=== PATIENT | male | born 1960 | race African-American/Black ===

== ENCOUNTER 2016-07-27 07:28 | Emergency (ER) | payer OTHER ==
[~2016-07-27] VITALS: Ht 170.2 cm; Wt 77.1 kg
--- NOTE | 2016-07-27 07:28 | NUR ---
BBRA+PD FROM THE STREETS, RUNNING IN TRAFFIC PER PD. NAD NOTED. RR EVEN AND UNLABORED. VSS. MD AT BEDSIDE FOR EVAL.
[2016-07-27] MEDS ORDERED: HALOPERIDOL LACTATE INJ 5 MG/ML VIAL ONE (07:41)
[2016-07-27] MEDS ORDERED: LORAZEPAM INJ 2 MG/ML VIAL ONE (07:42)
[2016-07-27] MEDS ORDERED: LORAZEPAM INJ 2 MG/ML VIAL IM ONE (08:00)
[2016-07-27] MEDS ORDERED: HALOPERIDOL LACTATE INJ 5 MG/ML VIAL IM ONE (08:00)
[2016-07-27] MEDS ORDERED: OLANZAPINE 10 MG VIAL IM ONE ×2 (08:30→08:32)
[2016-07-27] MEDS ORDERED: WATER FOR INJECTION,STERILE 10 ML ONE (08:33)
[2016-07-27 09:09] LABS: BASOPHILS % (AUTO) 0.2 % (0.0-2.0); EOSINOPHILS % (AUTO) 0.1 % (0.0-6.0); HEMATOCRIT 38 % (39-51); HEMOGLOBIN 12.9 g/dL (13.5-17.5); LYMPHOCYTES # (AUTO) 1.6 /CMM (0.8-4.8); LYMPHOCYTES % (AUTO) 15.4 % (20.0-44.0); MEAN CORPUSCULAR HEMOGLOBIN 31 PG (26.0-33.0); MEAN CORPUSCULAR HGB CONC 34 g/dl (31.0-36.0); MEAN CORPUSCULAR VOLUME 91 fL (80-96); MONOCYTES # (AUTO) 0.4 /CMM (0.1-1.30); MONOCYTES % (AUTO) 4.2 % (2.0-12.0); NEUTROPHILS # (AUTO) 8.3 /CMM (1.8-8.9); NEUTROPHILS % (AUTO) 80.1 % (43.0-81.0); PLATELET COUNT (AUTO) 142 /CMM (150-450); RDW COEFFICIENT OF VARIATION 13.3 (11.5-15.0); RED BLOOD CELL COUNT(AUTO) 4.22 MIL/uL (4.5-6.0); WHITE BLOOD COUNT (AUTO) 10.3 K/uL (4.3-11.0)
[2016-07-27 09:35] LABS: CALCIUM, SERUM 8.8 mg/dL (8.5-10.1); CARBON DIOXIDE 22 mmol/L (21-32); CHLORIDE 99 mmol/L (98-107); CREATININE 1.3 mg/dL (0.6-1.3); GFR 61 mL/min (>60); GLUCOSE 68 mg/dL (74-106); POTASSIUM 3.9 mmol/L (3.5-5.1); SODIUM SERUM 136 mmol/L (136-145); UREA NITROGEN, BLOOD 37 mg/dL (7-18)
[2016-07-27 09:37] LABS: ALANINE AMINOTRANSFERASE 80 U/L (12-78); ALBUMIN 3.7 g/dL (3.4-5.0); ALKALINE PHOSPHATASE 79 U/L (46-116); ASPARTATE AMINOTRANSFERASE 118 U/L (15-37); BILIRUBIN,DIRECT 0.3 mg/dL (0.0-0.2); BILIRUBIN,TOTAL 1.1 mg/dL (0.2-1.0); TOTAL PROTEIN, SERUM 7.6 g/dL (6.4-8.2)
[2016-07-27 09:38] LABS: ACETAMINOPHEN 0 ug/ml (10-30); ALCOHOL, BLOOD < 3 mg/dL (0-0); SALICYLATE 1.9 mg/dL (2.8-20.0)
[2016-07-27 10:02] LABS: APPEARANCE,URINE SL CLOUDY (CLEAR); BILIRUBIN,URINE NEGATIVE (NEGATIVE); BLOOD, URINE TRACE Ery/uL (NEGATIVE); COLOR,URINE YELLOW (YELLOW); KETONES,URINE 1+ (NEGATIVE); LEUKOCYTE ESTERASE ,URINE NEGATIVE (NEGATIVE); NITRITE, URINE NEGATIVE (NEGATIVE); PH,URINE 5.5 (5.0-8.0); PROTEIN,URINE TRACE mg/dl (NEGATIVE); UGLUCOSE NEGATIVE (NEGATIVE)
[2016-07-27 10:06] LABS: ADD URINE CULTURE NO; BACTERIA,URINE None seen /HPF (None Seen); RBC,URINE 0-3 /HPF (0-2); SPERM,URINE Moderate /HPF (None Seen); SQUAMOUS EPITHELIAL CELL,UR Rare /HPF (None Seen); WBC,URINE 0-2 /HPF (0-3)
[2016-07-27 10:16] LABS: CANNABINOID, URINE NEGATIVE (NEGATIVE); PHENCYCLIDINE SCREEN,URINE NEGATIVE (NEGATIVE)
--- NOTE | 2016-07-27 16:21 | NUR ---
CALLED [facility] FOR PSYCH EVAL
[2016-07-27] MEDS ORDERED: LORAZEPAM 1 MG TABLET PO ONE (17:00)
[2016-07-27] MEDS ORDERED: LORAZEPAM 1 MG TABLET ONE (17:36)
[2016-07-27 19:13] VITALS: BP 122/98
--- NOTE | 2016-07-27 19:14 | NUR ---
Patient discharged to home in stable condition. Written and verbal after care instructions given. Patient verbalizes understanding of instruction. pt ambulatory with stable gait. vss. cleared by perlita. no furhter complaints.
== END 2016-07-27 19:13 | disposition home or self-care (01) ==
LOC: ER 07:29 → EDBD 07:29 → ER 19:13
DX: F23 Brief psychotic disorder (principal); F15.10 Other stimulant abuse, uncomplicated
CPT/HCPCS: 36415; 71010; 80048; 80076; 80305; 80329; 81001; 85025; 96372 ×3; 99285; A4606; G0480 ×2; J1630; J2060; J3490; Z7610; 81000-TC; G6039-TC

== ENCOUNTER 2017-03-22 12:34 | Emergency (ER) | payer OTHER ==
[~2017-03-22] VITALS: Ht 167.6 cm; Wt 78.5 kg
[2017-03-22 13:05] LABS: BASOPHILS # (AUTO) 0.1 /CMM (0.0-0.2); BASOPHILS % (AUTO) 2.4 % (0.0-2.0); EOSINOPHILS # (AUTO) 0.2 /CMM (0.0-0.7); EOSINOPHILS % (AUTO) 3.2 % (0.0-6.0); HEMATOCRIT 45 % (39-51); HEMOGLOBIN 14.6 g/dL (13.5-17.5); LYMPHOCYTES # (AUTO) 1.6 /CMM (0.8-4.8); LYMPHOCYTES % (AUTO) 28.1 % (20.0-44.0); MEAN CORPUSCULAR HEMOGLOBIN 30 PG (26.0-33.0); MEAN CORPUSCULAR HGB CONC 33 g/dl (31.0-36.0); MEAN CORPUSCULAR VOLUME 93 fL (80-96); MONOCYTES # (AUTO) 0.4 /CMM (0.1-1.30); MONOCYTES % (AUTO) 6.6 % (2.0-12.0); NEUTROPHILS # (AUTO) 3.3 /CMM (1.8-8.9); NEUTROPHILS % (AUTO) 59.7 % (43.0-81.0); PLATELET COUNT (AUTO) 156 /CMM (150-450); RDW COEFFICIENT OF VARIATION 13.6 (11.5-15.0); RED BLOOD CELL COUNT(AUTO) 4.86 MIL/uL (4.5-6.0); WHITE BLOOD COUNT (AUTO) 5.6 K/uL (4.3-11.0)
[2017-03-22 13:07] LABS: BILIRUBIN,URINE Negative (NEGATIVE); BLOOD, URINE Negative Ery/uL (NEGATIVE); COLOR,URINE Yellow (YELLOW); KETONES,URINE Negative (NEGATIVE); LEUKOCYTE ESTERASE ,URINE Negative (NEGATIVE); NITRITE, URINE Negative (NEGATIVE); PROTEIN,URINE Negative (NEGATIVE); UGLUCOSE Negative (NEGATIVE); UROBILINOGEN,URINE 0.2 EU/dL (0.2)
[2017-03-22 13:08] LABS: APPEARANCE,URINE CLEAR (CLEAR)
[2017-03-22 13:14] LABS: CALCIUM, SERUM 9.2 mg/dL (8.5-10.1); CARBON DIOXIDE 25 mmol/L (21-32); CHLORIDE 103 mmol/L (98-107); CREATININE 1.1 mg/dL (0.6-1.3); GLUCOSE 132 mg/dL (74-106); SODIUM SERUM 138 mmol/L (136-145); UREA NITROGEN, BLOOD 20 mg/dL (7-18)
[2017-03-22 13:18] LABS: ALANINE AMINOTRANSFERASE 57 U/L (12-78); ALBUMIN 3.7 g/dL (3.4-5.0); ALCOHOL, BLOOD < 3 mg/dL (0-0); ALKALINE PHOSPHATASE 80 U/L (46-116); ASPARTATE AMINOTRANSFERASE 37 U/L (15-37); BILIRUBIN,DIRECT 0.1 mg/dL (0.0-0.2); BILIRUBIN,TOTAL 0.3 mg/dL (0.2-1.0); TOTAL PROTEIN, SERUM 7.8 g/dL (6.4-8.2)
[2017-03-22 13:19] LABS: ACETAMINOPHEN < 10 ug/ml (10-30); SALICYLATE 1.3 mg/dL (2.8-20.0)
[2017-03-22 14:05] VITALS: BP 111/79
== END 2017-03-22 14:08 | disposition home or self-care (01) ==
LOC: ER 12:38
DX: Z00.8 Encounter for other general examination (principal); F20.9 Schizophrenia, unspecified; F31.9 Bipolar disorder, unspecified; R45.851 Suicidal ideations; F17.200 Nicotine dependence, unspecified, uncomplicated; J45.909 Unspecified asthma, uncomplicated
CPT/HCPCS: 36415; 80048; 80076; 80305; 80329; 81001; 85025; 99284; 99406; A4606; G0480 ×2; Z7610; 81000-TC

== ENCOUNTER 2017-03-31 19:50 | Emergency (ER) | payer OTHER ==
[~2017-03-31] VITALS: Ht 175.3 cm; Wt 90.7 kg
--- NOTE | 2017-03-31 19:56 | NUR ---
PT BIBRA FROM THE STREETS TO ER BED 15. PER REPORT, EXHIBITING BIZZARE BEHAVIOR. PT IS TACHYCARDIC, TALKING TO SELF. PLACED ON MONITOR. AWAITING MD MELGOZA.
[2017-03-31] MEDS ORDERED: OLANZAPINE 10 MG VIAL IM ONE ×4 (20:00→22:30)
--- NOTE | 2017-03-31 20:00 | NUR ---
AFSANEH DESIGN SUPERVISOR AT BEDSIDE FOR EVAL.
[2017-03-31 20:33] LABS: BASOPHILS # (AUTO) 0.2 /CMM (0.0-0.2); BASOPHILS % (AUTO) 1.5 % (0.0-2.0); EOSINOPHILS # (AUTO) 0.1 /CMM (0.0-0.7); EOSINOPHILS % (AUTO) 0.6 % (0.0-6.0); HEMATOCRIT 44 % (39-51); HEMOGLOBIN 14.4 g/dL (13.5-17.5); LYMPHOCYTES # (AUTO) 1.6 /CMM (0.8-4.8); LYMPHOCYTES % (AUTO) 15.4 % (20.0-44.0); MEAN CORPUSCULAR HEMOGLOBIN 30 PG (26.0-33.0); MEAN CORPUSCULAR HGB CONC 33 g/dl (31.0-36.0); MEAN CORPUSCULAR VOLUME 92 fL (80-96); MONOCYTES # (AUTO) 1.1 /CMM (0.1-1.30); MONOCYTES % (AUTO) 10.5 % (2.0-12.0); NEUTROPHILS # (AUTO) 7.6 /CMM (1.8-8.9); PLATELET COUNT (AUTO) 172 /CMM (150-450); RDW COEFFICIENT OF VARIATION 13.1 (11.5-15.0); RED BLOOD CELL COUNT(AUTO) 4.74 MIL/uL (4.5-6.0); WHITE BLOOD COUNT (AUTO) 10.6 K/uL (4.3-11.0)
[2017-03-31 20:40] LABS: CALCIUM, SERUM 8.6 mg/dL (8.5-10.1); CARBON DIOXIDE 26 mmol/L (21-32); CHLORIDE 102 mmol/L (98-107); CREATININE 1.4 mg/dL (0.6-1.3); GLUCOSE 94 mg/dL (74-106); POTASSIUM 3.6 mmol/L (3.5-5.1); SODIUM SERUM 141 mmol/L (136-145); UREA NITROGEN, BLOOD 43 mg/dL (7-18)
[2017-03-31 20:53] LABS: ALANINE AMINOTRANSFERASE 107 U/L (12-78); ALKALINE PHOSPHATASE 64 U/L (46-116); ASPARTATE AMINOTRANSFERASE 152 U/L (15-37); BILIRUBIN,DIRECT 0.5 mg/dL (0.0-0.2); BILIRUBIN,TOTAL 2.2 mg/dL (0.2-1.0); TOTAL PROTEIN, SERUM 8.1 g/dL (6.4-8.2)
[2017-03-31] MEDS ORDERED: LORAZEPAM INJ 2 MG/ML VIAL ONE (20:53)
[2017-03-31 20:54] LABS: ACETAMINOPHEN < 2 ug/ml (10-30); ALCOHOL, BLOOD < 3 mg/dL (0-0); SALICYLATE < 2.8 mg/dL (2.8-20.0)
--- NOTE | 2017-03-31 20:59 | NUR ---
PT IS STILL AGITATED. TACHYCARDIC. AFSANEH SHEET METAL JOURNEYMAN MADE AWARE. ATIVAN 2MG IM GIVEN TO R DELTOID PER AFSANEH PA VERBAL ORDER.
[2017-03-31] MEDS ORDERED: LORAZEPAM INJ 2 MG/ML VIAL IV ONE (21:00)
[2017-03-31] MEDS ORDERED: IV NS 0.9% 1,000 ML BAG IV ONE (21:30)
[2017-03-31] MEDS ORDERED: diphenhydrAMINE HCL 50 MG/ML VIAL ONE (22:14)
[2017-03-31] MEDS ORDERED: diphenhydrAMINE HCL 50 MG/ML VIAL IM ONE (22:30)
--- NOTE | 2017-03-31 23:37 | NUR ---
REPORT TO CHARGE [employer] FOR CON.
--- NOTE | 2017-04-01 02:02 | NUR ---
pt sleeping in gurney. no signs of distress noted. pt vital signs normal. pt easily arousable. will cont to monitor pt.
--- NOTE | 2017-04-01 07:08 | NUR ---
Patient provided with clothing and food. Patient discharged in stable condition. Written and verbal after care instructions given. Patient verbalizes understanding of instruction. Patient is ambulatory with steady gait. VSS. No further complaints.
[2017-04-01 07:10] VITALS: BP 132/71
== END 2017-04-01 07:11 | disposition home or self-care (01) ==
LOC: ER 19:53
DX: F23 Brief psychotic disorder (principal); F31.9 Bipolar disorder, unspecified; F20.9 Schizophrenia, unspecified; F17.200 Nicotine dependence, unspecified, uncomplicated; F15.10 Other stimulant abuse, uncomplicated
CPT/HCPCS: 36415; 80048; 80076; 80329; 85025; 96360; 96372 ×4; 99284; A4606; G0480 ×2; J1200; J2060; J3490 ×2; J7030; Z7610

== ENCOUNTER 2017-04-14 17:24 | Emergency (ER) | payer OTHER ==
[~2017-04-14] VITALS: Ht 167.6 cm; Wt 73.9 kg
[2017-04-14 17:26] VITALS: BP 120/84
--- NOTE | 2017-04-14 17:26 | NUR ---
PT TO ER BED 10. SENT FROM [facility] FOR MEDICAL CLEARANCE PRIOR TO VOLUNTARY PSYCH ADMISSION. PT IS AGITATED AND REFUSING TO ANSWER QUESTION. VSS. NAD NOTED AWAITING MD MELGOZA.
--- NOTE | 2017-04-14 17:57 | NUR ---
PERRY MEDELLIN AT BEDSIDE FOR EVAL.
--- NOTE | 2017-04-14 18:15 | NUR ---
MARKET MANAGER AT BEDSIDE FOR BLOOD DRAW.
[2017-04-14 18:29] LABS: APPEARANCE,URINE Clear (CLEAR); BILIRUBIN,URINE Negative (NEGATIVE); BLOOD, URINE Negative Ery/uL (NEGATIVE); COLOR,URINE Yellow (YELLOW); KETONES,URINE Negative (NEGATIVE); LEUKOCYTE ESTERASE ,URINE Negative (NEGATIVE); NITRITE, URINE Negative (NEGATIVE); PH,URINE 5.5 (5.0-8.0); PROTEIN,URINE Negative (NEGATIVE); UGLUCOSE Negative (NEGATIVE); UROBILINOGEN,URINE 0.2 EU/dL (0.2)
[2017-04-14 18:31] LABS: BASOPHILS # (AUTO) 0.1 /CMM (0.0-0.2); BASOPHILS % (AUTO) 1.9 % (0.0-2.0); EOSINOPHILS # (AUTO) 0.2 /CMM (0.0-0.7); EOSINOPHILS % (AUTO) 3.7 % (0.0-6.0); HEMATOCRIT 47 % (39-51); HEMOGLOBIN 15.6 g/dL (13.5-17.5); LYMPHOCYTES # (AUTO) 2.4 /CMM (0.8-4.8); LYMPHOCYTES % (AUTO) 43.5 % (20.0-44.0); MEAN CORPUSCULAR HEMOGLOBIN 31 PG (26.0-33.0); MEAN CORPUSCULAR HGB CONC 33 g/dl (31.0-36.0); MEAN CORPUSCULAR VOLUME 92 fL (80-96); MONOCYTES # (AUTO) 0.5 /CMM (0.1-1.30); MONOCYTES % (AUTO) 8.4 % (2.0-12.0); NEUTROPHILS # (AUTO) 2.4 /CMM (1.8-8.9); NEUTROPHILS % (AUTO) 42.5 % (43.0-81.0); PLATELET COUNT (AUTO) 188 /CMM (150-450); RED BLOOD CELL COUNT(AUTO) 5.11 MIL/uL (4.5-6.0); WHITE BLOOD COUNT (AUTO) 5.6 K/uL (4.3-11.0)
[2017-04-14 18:41] LABS: CALCIUM, SERUM 9.1 mg/dL (8.5-10.1); CARBON DIOXIDE 27 mmol/L (21-32); CHLORIDE 104 mmol/L (98-107); CREATININE 1.2 mg/dL (0.6-1.3); GLUCOSE 86 mg/dL (74-106); POTASSIUM 3.8 mmol/L (3.5-5.1); SODIUM SERUM 140 mmol/L (136-145); UREA NITROGEN, BLOOD 17 mg/dL (7-18)
[2017-04-14 18:54] LABS: INR 1.04 (0.87-1.13); PROTHROMBIN TIME 10.8 SECS (9.5-12.7)
[2017-04-14 18:59] LABS: ACETAMINOPHEN < 2 ug/ml (10-30); ALANINE AMINOTRANSFERASE 88 U/L (12-78); ALBUMIN 3.7 g/dL (3.4-5.0); ALCOHOL, BLOOD < 3 mg/dL (0-0); ALKALINE PHOSPHATASE 75 U/L (46-116); ASPARTATE AMINOTRANSFERASE 45 U/L (15-37); BILIRUBIN,DIRECT 0.1 mg/dL (0.0-0.2); BILIRUBIN,TOTAL 0.3 mg/dL (0.2-1.0); SALICYLATE 1.1 mg/dL (2.8-20.0); TOTAL PROTEIN, SERUM 8.1 g/dL (6.4-8.2)
--- NOTE | 2017-04-14 19:10 | NUR ---
Patient discharged to home in stable condition. Written and verbal after care instructions given. Patient verbalizes understanding of instruction.
== END 2017-04-14 19:15 | disposition home or self-care (01) ==
LOC: ER 17:25
DX: R45.851 Suicidal ideations (principal); F17.200 Nicotine dependence, unspecified, uncomplicated; F20.9 Schizophrenia, unspecified; F31.9 Bipolar disorder, unspecified; I10 Essential (primary) hypertension; R79.1 Abnormal coagulation profile
CPT/HCPCS: 36415; 80048; 80076; 80305; 80329; 81001; 85025; 85730; 99284; A4606; G0480 ×2; Z7610; 81000-TC

== ENCOUNTER 2017-04-23 17:41 | Emergency (ER) | payer OTHER ==
[~2017-04-23] VITALS: Ht 167.6 cm; Wt 79.4 kg
--- NOTE | 2017-04-23 19:00 | NUR ---
PT AMBULATORY TO ER BED 14 STATING HE IS SUICIDAL AND WANTS TO BE ADMITTED TO PSYCH WAY. PT HAS NO SPECIFIC PLAN AT THIS TIME. ALSO REQUESTING FOOD. VSS. AWAITING MD MELGOZA.
--- NOTE | 2017-04-23 19:38 | NUR ---
DR SNOW AT BEDSIDE FOR EVAL.
[2017-04-23 19:48] VITALS: BP 115/70
--- NOTE | 2017-04-23 19:51 | NUR ---
CONTROL CHEMIST AT BEDSIDE FOR BLOOD DRAW.
[2017-04-23 20:15] LABS: BASOPHILS % (AUTO) 0.4 % (0.0-2.0); EOSINOPHILS # (AUTO) 0.2 /CMM (0.0-0.7); EOSINOPHILS % (AUTO) 2.9 % (0.0-6.0); HEMATOCRIT 43 % (39-51); HEMOGLOBIN 14.2 g/dL (13.5-17.5); LYMPHOCYTES # (AUTO) 2.3 /CMM (0.8-4.8); LYMPHOCYTES % (AUTO) 40.1 % (20.0-44.0); MEAN CORPUSCULAR HEMOGLOBIN 31 PG (26.0-33.0); MEAN CORPUSCULAR HGB CONC 33 g/dl (31.0-36.0); MEAN CORPUSCULAR VOLUME 92 fL (80-96); MONOCYTES # (AUTO) 0.7 /CMM (0.1-1.30); NEUTROPHILS # (AUTO) 2.6 /CMM (1.8-8.9); NEUTROPHILS % (AUTO) 44.6 % (43.0-81.0); PLATELET COUNT (AUTO) 150 /CMM (150-450); RDW COEFFICIENT OF VARIATION 13.5 (11.5-15.0); RED BLOOD CELL COUNT(AUTO) 4.63 MIL/uL (4.5-6.0); WHITE BLOOD COUNT (AUTO) 5.8 K/uL (4.3-11.0)
[2017-04-23 20:18] LABS: APPEARANCE,URINE CLEAR (CLEAR); BILIRUBIN,URINE NEGATIVE (NEGATIVE); BLOOD, URINE NEGATIVE Ery/uL (NEGATIVE); COLOR,URINE YELLOW (YELLOW); KETONES,URINE NEGATIVE (NEGATIVE); LEUKOCYTE ESTERASE ,URINE NEGATIVE (NEGATIVE); NITRITE, URINE NEGATIVE (NEGATIVE); PROTEIN,URINE TRACE mg/dl (NEGATIVE); UGLUCOSE NEGATIVE (NEGATIVE)
[2017-04-23 20:28] LABS: BACTERIA,URINE None seen /HPF (None Seen); RBC,URINE 0-2 /HPF (0-2); SQUAMOUS EPITHELIAL CELL,UR 0-2 /HPF (None Seen); WBC,URINE 0-2 /HPF (0-3)
[2017-04-23 20:35] LABS: CALCIUM, SERUM 8.5 mg/dL (8.5-10.1); CARBON DIOXIDE 26 mmol/L (21-32); CHLORIDE 106 mmol/L (98-107); CREATININE 0.9 mg/dL (0.6-1.3); GLUCOSE 80 mg/dL (74-106); POTASSIUM 3.6 mmol/L (3.5-5.1); SODIUM SERUM 140 mmol/L (136-145); UREA NITROGEN, BLOOD 17 mg/dL (7-18)
[2017-04-23 20:41] LABS: ALANINE AMINOTRANSFERASE 75 U/L (12-78); ALBUMIN 3.6 g/dL (3.4-5.0); ALCOHOL, BLOOD < 3 mg/dL (0-0); ALKALINE PHOSPHATASE 72 U/L (46-116); ASPARTATE AMINOTRANSFERASE 59 U/L (15-37); BILIRUBIN,DIRECT 0.2 mg/dL (0.0-0.2); TOTAL PROTEIN, SERUM 7.4 g/dL (6.4-8.2)
[2017-04-23 20:43] LABS: ACETAMINOPHEN < 2 ug/ml (10-30); SALICYLATE < 0.2 mg/dL (2.8-20.0)
--- NOTE | 2017-04-23 21:40 | NUR ---
PT AGITATED AND REFUSING TO STAY IN BED. SHOUTING AND CURSING AT STAFF. GRABBED, VIVIEN BARNARD BY THE NECK AND DRAGGED HIM TO THE FLOOR, SECURITY CALLED AND ESCORTED PATIENT OUT OF ED.
== END 2017-04-23 22:32 | disposition home or self-care (01) ==
LOC: ER 17:43
DX: T40.5X2A Poisoning by cocaine, intentional self-harm, initial encounter (principal); F17.200 Nicotine dependence, unspecified, uncomplicated; F31.9 Bipolar disorder, unspecified; I10 Essential (primary) hypertension; F20.9 Schizophrenia, unspecified; Y92.89 Other specified places as the place of occurrence of the external cause
CPT/HCPCS: 36415; 80048-TC; 80076-TC; 80305; 81000-TC; 85025-TC; A4606; G0480; Z7610

== ENCOUNTER 2017-07-10 12:15 | Emergency (ER) | payer OTHER ==
[~2017-07-10] VITALS: Ht 177.8 cm; Wt 76.2 kg
--- NOTE | 2017-07-10 12:20 | NUR ---
BIB [facility] FOR SUICIDAL IDEATION, REQUESTING PSYCHIATRIC ADMISSION. RAN OUT OF PSYCH MEDS X 5 DAYS. SEEN BY MD FOR EVAL. NOTED CALM AND DIRECTABLE. VSS. SAFETY AND COMFORGT MEASURES PROVIDED. SUICIDE PRECAUTIONS IMPLEMENTED. WILL MONITOR.
[2017-07-10] MEDS ORDERED: OLANZAPINE 5 MG TABLET ONE (12:25)
[2017-07-10] MEDS ORDERED: LORAZEPAM 1 MG TABLET ONE (12:25)
[2017-07-10] MEDS ORDERED: LORAZEPAM 1 MG TABLET PO ONE (12:30)
[2017-07-10] MEDS ORDERED: OLANZAPINE 5 MG TABLET PO ONE (12:30)
--- NOTE | 2017-07-10 12:35 | NUR ---
TILE PROFESSIONAL AT FOR BLOOD DRAW.
[2017-07-10 12:44] LABS: BASOPHILS % (AUTO) 0.5 % (0.0-2.0); EOSINOPHILS # (AUTO) 0.1 /CMM (0.0-0.7); EOSINOPHILS % (AUTO) 0.6 % (0.0-6.0); HEMATOCRIT 41 % (39-51); HEMOGLOBIN 13.8 g/dL (13.5-17.5); LYMPHOCYTES # (AUTO) 1.9 /CMM (0.8-4.8); LYMPHOCYTES % (AUTO) 20.6 % (20.0-44.0); MEAN CORPUSCULAR HEMOGLOBIN 31 PG (26.0-33.0); MEAN CORPUSCULAR HGB CONC 34 g/dl (31.0-36.0); MEAN CORPUSCULAR VOLUME 92 fL (80-96); MONOCYTES % (AUTO) 10.7 % (2.0-12.0); NEUTROPHILS # (AUTO) 6.2 /CMM (1.8-8.9); NEUTROPHILS % (AUTO) 67.6 % (43.0-81.0); PLATELET COUNT (AUTO) 186 /CMM (150-450); RDW COEFFICIENT OF VARIATION 13.3 (11.5-15.0); RED BLOOD CELL COUNT(AUTO) 4.45 MIL/uL (4.5-6.0); WHITE BLOOD COUNT (AUTO) 9.2 K/uL (4.3-11.0)
[2017-07-10 12:53] LABS: CALCIUM, SERUM 8.5 mg/dL (8.5-10.1); CARBON DIOXIDE 28 mmol/L (21-32); CHLORIDE 103 mmol/L (98-107); CREATININE 0.9 mg/dL (0.6-1.3); GLUCOSE 109 mg/dL (74-106); POTASSIUM 3.6 mmol/L (3.5-5.1); SODIUM SERUM 138 mmol/L (136-145); UREA NITROGEN, BLOOD 20 mg/dL (7-18)
[2017-07-10 12:59] LABS: ALANINE AMINOTRANSFERASE 119 U/L (12-78); ALBUMIN 3.4 g/dL (3.4-5.0); ALCOHOL, BLOOD < 3 mg/dL (0-0); ALKALINE PHOSPHATASE 61 U/L (46-116); ASPARTATE AMINOTRANSFERASE 103 U/L (15-37); BILIRUBIN,DIRECT 0.4 mg/dL (0.0-0.2); BILIRUBIN,TOTAL 1.2 mg/dL (0.2-1.0); TOTAL PROTEIN, SERUM 7.3 g/dL (6.4-8.2)
[2017-07-10 13:05] LABS: SALICYLATE 1.7 mg/dL (2.8-20.0)
[2017-07-10 13:06] LABS: ACETAMINOPHEN < 2 ug/ml (10-30)
--- NOTE | 2017-07-10 13:13 | NUR ---
CALLED ART RESIDENTIAL APPLIANCE REPAIR TECHNICIAN WAS PAGED.
--- NOTE | 2017-07-10 13:21 | NUR ---
Patient is resting comfortably in bed with eyes closed. Easily aroused. VSS
--- NOTE | 2017-07-10 15:00 | NUR ---
Pt ambulatory with a steady gait.
--- NOTE | 2017-07-10 15:13 | NUR ---
Patient discharged to home in stable condition. Written and verbal after care instructions given. Patient verbalizes understanding of instruction.
[2017-07-10 15:16] VITALS: BP 112/69
== END 2017-07-10 15:17 | disposition home or self-care (01) ==
LOC: ER 12:16
DX: F15.10 Other stimulant abuse, uncomplicated (principal); F29 Unspecified psychosis not due to a substance or known physiological condition; I10 Essential (primary) hypertension; J45.909 Unspecified asthma, uncomplicated; F31.9 Bipolar disorder, unspecified; F20.9 Schizophrenia, unspecified; Z91.14 Patient's other noncompliance with medication regimen; Z91.19 Patient's noncompliance with other medical treatment and regimen; Z86.19 Personal history of other infectious and parasitic diseases; F17.200 Nicotine dependence, unspecified, uncomplicated
CPT/HCPCS: 36415; 80048; 80076; 80329; 85025; 99284; G0480 ×2

== ENCOUNTER 2017-09-11 04:11 | Emergency (ER) | payer OTHER ==
[~2017-09-11] VITALS: Ht 167.6 cm; Wt 78.5 kg
--- NOTE | 2017-09-11 04:23 | NUR ---
BIBRA 97 / [employer] FOR HEARING VOICES. NO PRIMARY COMPLAINTS -HI / +SI. NO ACTIVE. PLAN. PT AOX3 RR EVEN AND UNLABORED. NO SOB NOTED. NO NVD AT THIS TIME. PT PLACED ON MONITOR WAITING FOR MD MELGOZA.
[2017-09-11] MEDS ORDERED: LORAZEPAM 1 MG TABLET PO ONE ×3 (04:30→08:00)
[2017-09-11] MEDS ORDERED: OLANZAPINE 10 MG VIAL IM ONE ×4 (04:30→12:01)
[2017-09-11] MEDS ORDERED: LORAZEPAM 1 MG TABLET ONE ×3 (04:39→07:45)
--- NOTE | 2017-09-11 04:48 | NUR ---
MD AWARE PT REFUSED IM ZYPREXA. RISK AND BENEFITS EXPLAINED TO PT, PT REFUSED.
--- NOTE | 2017-09-11 04:51 | NUR ---
LAB AT BEDSIDE FOR BLOOD DRAW
[2017-09-11] MEDS ORDERED: OLANZAPINE 5 MG/TAB.RAPDIS ONE (05:00)
[2017-09-11] MEDS ORDERED: OLANZAPINE 5 MG TABLET PO ONE (05:00)
[2017-09-11 05:04] LABS: BASOPHILS # (AUTO) 0.1 /CMM (0.0-0.2); BASOPHILS % (AUTO) 0.7 % (0.0-2.0); EOSINOPHILS # (AUTO) 0.1 /CMM (0.0-0.7); EOSINOPHILS % (AUTO) 1.1 % (0.0-6.0); HEMATOCRIT 41 % (39-51); HEMOGLOBIN 13.6 g/dL (13.5-17.5); LYMPHOCYTES # (AUTO) 1.9 /CMM (0.8-4.8); LYMPHOCYTES % (AUTO) 22.4 % (20.0-44.0); MEAN CORPUSCULAR HEMOGLOBIN 31 PG (26.0-33.0); MEAN CORPUSCULAR HGB CONC 33 g/dl (31.0-36.0); MEAN CORPUSCULAR VOLUME 93 fL (80-96); MONOCYTES # (AUTO) 0.6 /CMM (0.1-1.30); MONOCYTES % (AUTO) 7.1 % (2.0-12.0); NEUTROPHILS # (AUTO) 5.8 /CMM (1.8-8.9); NEUTROPHILS % (AUTO) 68.7 % (43.0-81.0); PLATELET COUNT (AUTO) 233 /CMM (150-450); RDW COEFFICIENT OF VARIATION 13.8 (11.5-15.0); RED BLOOD CELL COUNT(AUTO) 4.38 MIL/uL (4.5-6.0); WHITE BLOOD COUNT (AUTO) 8.5 K/uL (4.3-11.0)
--- NOTE | 2017-09-11 05:06 | NUR ---
URINE COLLECTED. CALLED LAB FOR FASHION ILLUSTRATOR.
[2017-09-11 05:09] LABS: CARBON DIOXIDE 26 mmol/L (21-32); CHLORIDE 101 mmol/L (98-107); GLUCOSE 70 mg/dL (74-106); POTASSIUM 3.7 mmol/L (3.5-5.1); SODIUM SERUM 137 mmol/L (136-145); UREA NITROGEN, BLOOD 19 mg/dL (7-18)
[2017-09-11 05:15] LABS: ALANINE AMINOTRANSFERASE 93 U/L (12-78); ALBUMIN 3.5 g/dL (3.4-5.0); ALCOHOL, BLOOD < 3 mg/dL (0-0); ALKALINE PHOSPHATASE 57 U/L (46-116); ASPARTATE AMINOTRANSFERASE 62 U/L (15-37); BILIRUBIN,DIRECT 0.3 mg/dL (0.0-0.2); TOTAL PROTEIN, SERUM 7.7 g/dL (6.4-8.2)
[2017-09-11 05:19] LABS: ACETAMINOPHEN 0 ug/ml (10-30); SALICYLATE 1.6 mg/dL (2.8-20.0)
[2017-09-11 05:22] LABS: THYROID STIMULATING HORMONE 1.117 uIU/mL (0.358-3.74)
[2017-09-11] MEDS ORDERED: HALOPERIDOL 5 MG TABLET ONE (06:16)
[2017-09-11] MEDS ORDERED: HALOPERIDOL 1 MG TABLET PO ONE (06:30)
--- NOTE | 2017-09-11 06:32 | NUR ---
PT MOVED TO ER BED 6. PT AWARE AND WITH ALL PERSONAL BELONGINGS.
--- NOTE | 2017-09-11 07:03 | NUR ---
REPORT GIVEN TO TIFFANY TYSON FOR CON.
--- NOTE | 2017-09-11 07:26 | NUR ---
Patient eloped from facility. ER MD notified.
--- NOTE | 2017-09-11 07:35 | NUR ---
PT CAME BACK TO THE ER. NOTIFIED.
--- NOTE | 2017-09-11 07:50 | NUR ---
PT PROVIDED WITH BREAKFAST TRAY AT BS.
--- NOTE | 2017-09-11 08:15 | NUR ---
REFUSED VS TO BE CHECKED AT THIS TIME.
--- NOTE | 2017-09-11 09:00 | NUR ---
Patient is resting comfortably in bed with eyes closed. Easily aroused. VSS
--- NOTE | 2017-09-11 10:55 | NUR ---
PT NOTED WALKING ON THE HALLWAY NAKED, AGITATED. SAFELY ASSISTED BACK TO BED PER PROTOCOL. MD MADE AWARE.
[2017-09-11] MEDS ORDERED: LORAZEPAM INJ 2 MG/ML VIAL IM ONE ×2 (11:00→12:00)
[2017-09-11] MEDS ORDERED: HALOPERIDOL LACTATE INJ 5 MG/ML VIAL IM ONE (11:00)
[2017-09-11] MEDS ORDERED: LORAZEPAM INJ 2 MG/ML VIAL ONE (11:02)
[2017-09-11] MEDS ORDERED: HALOPERIDOL LACTATE INJ 5 MG/ML VIAL ONE (11:02)
--- NOTE | 2017-09-11 11:05 | NUR ---
PT MEDICATED ORDERED.
--- NOTE | 2017-09-11 12:00 | NUR ---
PT NOTED PEED ALL OVER BED/ROOM. WALKED AND TRIED TO PEE ON THE HALLWAY NAKED.
[2017-09-11] MEDS ORDERED: WATER FOR INJECTION,STERILE 10 ML ONE (12:01)
--- NOTE | 2017-09-11 15:35 | NUR ---
Patient is resting comfortably in bed with eyes closed. Easily aroused. VSS
--- NOTE | 2017-09-11 18:57 | NUR ---
RECEIVED REPORT FROM TIFFANY TYSON FOR CON. PT RESTING AT THIS TIME WITH EYE CLOSED. EASILY AROUSED.
--- NOTE | 2017-09-11 20:03 | NUR ---
[facility]
--- NOTE | 2017-09-11 20:31 | NUR ---
CALLED ALEX FOR [facility] ETA OF [id number] WAS GIVEN. TRIP#[id number]
--- NOTE | 2017-09-11 21:44 | NUR ---
REPORT GIVEN TO EMT FROM [facility]. PT AWARE OF TRANSFER TO [facility]. PT VSS. PT WITH ALL PERSONAL BELONGINGS. PER ALEX TOOK OVER CARE TRANSFERRED PT VIA SALVADOR
[2017-09-11 21:45] VITALS: BP 140/82
== END 2017-09-11 22:22 ==
LOC: ER 04:13
DX: F23 Brief psychotic disorder (principal); I10 Essential (primary) hypertension; J45.909 Unspecified asthma, uncomplicated; F31.9 Bipolar disorder, unspecified; F17.200 Nicotine dependence, unspecified, uncomplicated; Z86.19 Personal history of other infectious and parasitic diseases
CPT/HCPCS: 36415; 80048; 80076; 80305; 80329; 84443; 85025; 96372 ×2; 99285; A4606; G0480 ×2; J1630; J2060; J3490 ×2; Z7610

== ENCOUNTER 2017-11-10 00:55 | Emergency (ER) | payer OTHER ==
[~2017-11-10] VITALS: Ht 172.7 cm; Wt 72.6 kg
--- NOTE | 2017-11-10 01:10 | NUR ---
PT BIB SELF, PT STATES HE WAS AT [facility] AND TOLD TO GET MEDICALLY CLEARED HERE TO GO, PT STATES HE WANTS TO CUT HIMSELF AND DENIES HI. PATIENT IS AAOX3, NAD NOTED. VSS. AMBULATORY WITH STEADY GAIT.
[2017-11-10 01:20] LABS: BASOPHILS % (AUTO) 0.6 % (0.0-2.0); HEMATOCRIT 43 % (39-51); HEMOGLOBIN 14.6 g/dL (13.5-17.5); LYMPHOCYTES # (AUTO) 1.8 /CMM (0.8-4.8); MEAN CORPUSCULAR HGB CONC 34 g/dl (31.0-36.0); MEAN CORPUSCULAR VOLUME 90 fL (80-96); MONOCYTES # (AUTO) 0.6 /CMM (0.1-1.30); MONOCYTES % (AUTO) 13.2 % (2.0-12.0); NEUTROPHILS # (AUTO) 2.1 /CMM (1.8-8.9); NEUTROPHILS % (AUTO) 44.2 % (43.0-81.0); PLATELET COUNT (AUTO) 188 /CMM (150-450); RDW COEFFICIENT OF VARIATION 13.3 (11.5-15.0); RED BLOOD CELL COUNT(AUTO) 4.77 MIL/uL (4.5-6.0); WHITE BLOOD COUNT (AUTO) 4.8 K/uL (4.3-11.0)
[2017-11-10 01:23] LABS: APPEARANCE,URINE CLEAR (CLEAR); BILIRUBIN,URINE NEGATIVE (NEGATIVE); BLOOD, URINE NEGATIVE Ery/uL (NEGATIVE); KETONES,URINE NEGATIVE (NEGATIVE); LEUKOCYTE ESTERASE ,URINE NEGATIVE (NEGATIVE); NITRITE, URINE NEGATIVE (NEGATIVE); PROTEIN,URINE NEGATIVE (NEGATIVE); UGLUCOSE NEGATIVE (NEGATIVE); UROBILINOGEN,URINE 0.2 EU/dL (0.2)
[2017-11-10 01:25] LABS: COLOR,URINE DARK YELLOW (YELLOW)
[2017-11-10 01:31] LABS: CALCIUM, SERUM 9.3 mg/dL (8.5-10.1); CARBON DIOXIDE 25 mmol/L (21-32); CHLORIDE 104 mmol/L (98-107); CREATININE 1.1 mg/dL (0.6-1.3); GLUCOSE 73 mg/dL (74-106); POTASSIUM 3.5 mmol/L (3.5-5.1); SODIUM SERUM 141 mmol/L (136-145); UREA NITROGEN, BLOOD 15 mg/dL (7-18)
[2017-11-10 01:36] LABS: ALANINE AMINOTRANSFERASE 79 U/L (12-78); ALBUMIN 3.8 g/dL (3.4-5.0); ALCOHOL, BLOOD < 3 mg/dL (0-0); ALKALINE PHOSPHATASE 74 U/L (46-116); ASPARTATE AMINOTRANSFERASE 50 U/L (15-37); BILIRUBIN,DIRECT 0.2 mg/dL (0.0-0.2); BILIRUBIN,TOTAL 0.7 mg/dL (0.2-1.0); TOTAL PROTEIN, SERUM 8.3 g/dL (6.4-8.2)
[2017-11-10 01:48] LABS: ACETAMINOPHEN 0 ug/ml (10-30)
--- NOTE | 2017-11-10 02:05 | NUR ---
ALEX HAIR, BUILDING WRECKER, AT BEDSIDE TALKING TO PATIENT.
--- NOTE | 2017-11-10 02:31 | NUR ---
Patient discharged in stable condition. Written and verbal after care instructions given. Patient verbalizes understanding of instruction. VSS. NAD NOTED. No further complaints.
[2017-11-10 02:32] VITALS: BP 150/94
== END 2017-11-10 02:33 | disposition home or self-care (01) ==
LOC: ER 01:00
DX: R45.851 Suicidal ideations (principal); I10 Essential (primary) hypertension; J45.909 Unspecified asthma, uncomplicated; F31.9 Bipolar disorder, unspecified; F20.9 Schizophrenia, unspecified; F17.200 Nicotine dependence, unspecified, uncomplicated; Z86.19 Personal history of other infectious and parasitic diseases
CPT/HCPCS: 36415; 80048-TC; 80076-TC; 80305; 81000-TC; 85025-TC; A4606; G0480; Z7610